=== PATIENT | male | born 1965 | race Hispanic/Latino ===

== ENCOUNTER 2018-11-24 11:02 | Emergency (ER) | payer SELFPAY ==
[2018-11-24] MEDS ORDERED: METHYLPREDNISOLONE SOD SUCC 125MG/2ML VIAL ONE ×2 (11:14→11:17)
[2018-11-24] MEDS ORDERED: IPRATROPIUM/ALBUTEROL SULFATE 3 ML SOLUTION IH ONE (11:36)
== END 2018-11-24 12:33 | disposition home or self-care (01) ==
LOC: EDH 11:02
DX: J20.9 Acute bronchitis, unspecified (principal); H66.011 Acute suppurative otitis media with spontaneous rupture of ear drum, right ear; E78.00 Pure hypercholesterolemia, unspecified; Z87.891 Personal history of nicotine dependence
CPT/HCPCS: 71046; 87804 ×2; 94640; 96372; 99284; J2930 ×2